=== PATIENT | male | born 1950 | race Caucasian/White ===

== ENCOUNTER 2017-05-10 16:35 | Emergency (ER) | payer MEDICARE, OTHER ==
[~2017-05-10] VITALS: Wt 68.0 kg
[~2017-05-10 16:35] MED LIST: AMOXICILLIN500 M2 PO; AUGMENTIN 875-875 MG PO; BENAZEPRIL10 MG PO; OXYCODONE AND A1 TA3 PO; REQUIP0.5 MG PO; TESSALON PERLE100 M1 PO; XANAX XR1 MG PO; XANAX1 MG PO; ZOCOR80 MG PO
[2017-05-10] MEDS ORDERED: CLARITIN10 MG PO (16:55)
[2017-05-10] MEDS ORDERED: AUGMENTIN 875875 MG PO (16:55)
[2017-05-10] MEDS ORDERED: FLONASE ALLERG9.9 ML NAS (16:55)
== END 2017-05-10 17:15 | disposition home or self-care (01) ==
LOC: ED 16:35
DX: J01.90 Acute sinusitis, unspecified (principal); F17.200 Nicotine dependence, unspecified, uncomplicated; Z96.611 Presence of right artificial shoulder joint

== ENCOUNTER 2017-08-22 12:03 | Emergency (ER) | payer MEDICARE ==
[~2017-08-22] VITALS: Ht 162.5 cm; Wt 77.1 kg
[~2017-08-22 12:03] MED LIST changes: +AUGMENTIN 875875 MG PO; +CLARITIN10 MG PO; +FLONASE ALLERG9.9 ML NAS
[2017-08-22] MEDS ORDERED: ROBITUSSIN DM 105 ML PO (13:26)
[2017-08-22] MEDS ORDERED: PREDNISONE20 M1 PO (13:26)
[2017-08-22] MEDS ORDERED: ZYRTEC10 MG PO (13:26)
== END 2017-08-22 13:58 | disposition home or self-care (01) ==
LOC: ED 12:03
DX: B34.9 Viral infection, unspecified (principal); F17.200 Nicotine dependence, unspecified, uncomplicated; Z98.890 Other specified postprocedural states; Z20.828 Contact with and (suspected) exposure to other viral communicable diseases; Z79.899 Other long term (current) drug therapy

== ENCOUNTER 2017-10-18 09:13 | Emergency (ER) | payer MEDICARE ==
[~2017-10-18] VITALS: Ht 162.5 cm; Wt 68.0 kg
[~2017-10-18 09:13] MED LIST changes: +PREDNISONE20 M1 PO; +ROBITUSSIN DM 105 ML PO; +ZYRTEC10 MG PO
[2017-10-18] MEDS ORDERED: FLONASE ALLERG9.9 ML NAS (09:49)
[2017-10-18] MEDS ORDERED: ROBITUSSIN DM 105 ML PO (09:49)
== END 2017-10-18 09:53 | disposition home or self-care (01) ==
LOC: ED 09:13
DX: R05 Cough (principal); J06.9 Acute upper respiratory infection, unspecified; F17.200 Nicotine dependence, unspecified, uncomplicated; Z98.890 Other specified postprocedural states; Z79.899 Other long term (current) drug therapy

== ENCOUNTER 2017-12-10 20:18 | Emergency (ER) | payer MEDICARE ==
[~2017-12-10] VITALS: Ht 167.6 cm; Wt 72.6 kg
[2017-12-10] MEDS ORDERED: ROBITUSSIN DM 105 ML PO (22:06)
[2017-12-10] MEDS ORDERED: PREDNISONE20 M1 PO (22:06)
[2017-12-10] MEDS ORDERED: CEFDINIR300 MG PO (22:06)
== END 2017-12-10 22:03 | disposition home or self-care (01) ==
LOC: ED 20:18
DX: J20.9 Acute bronchitis, unspecified (principal); J32.9 Chronic sinusitis, unspecified; Z79.899 Other long term (current) drug therapy; Z87.891 Personal history of nicotine dependence

== ENCOUNTER 2018-01-29 13:18 | Emergency (ER) | payer MEDICARE ==
[~2018-01-29] VITALS: Ht 157.4 cm; Wt 68.0 kg
[~2018-01-29 13:18] MED LIST changes: +CEFDINIR300 MG PO
[2018-01-29] MEDS ORDERED: AMOXICILLIN500 M2 PO (13:43)
[2018-01-29] MEDS ORDERED: PREDNISONE10 MG PO (13:43)
[2018-01-29] MEDS ORDERED: CLARITIN10 MG PO (13:43)
[2018-01-29] MEDS ORDERED: FLONASE ALLERG9.9 ML NAS (13:43)
[2018-02-18] MEDS ORDERED: COREG6.25 MG PO (14:00)
== END 2018-01-29 13:59 | disposition home or self-care (01) ==
LOC: ED 13:18
DX: G89.29 Other chronic pain (principal); M54.5 Low back pain; J02.9 Acute pharyngitis, unspecified; R03.0 Elevated blood-pressure reading, without diagnosis of hypertension; Z79.899 Other long term (current) drug therapy

== ENCOUNTER 2018-02-13 18:47 | Emergency (ER) | payer MEDICARE, OTHER ==
[~2018-02-13] VITALS: Wt 70.8 kg
[~2018-02-13 18:47] MED LIST changes: +PREDNISONE10 MG PO
[2018-02-13] MEDS ORDERED: CYCLOBENZAPRINE5 M3 PO (22:07)
[2018-02-18] MEDS ORDERED: COREG6.25 MG PO (14:00)
== END 2018-02-13 23:17 | disposition home or self-care (01) ==
LOC: ED 18:47
DX: S39.012A Strain of muscle, fascia and tendon of lower back, initial encounter (principal); S16.1XXA Strain of muscle, fascia and tendon at neck level, initial encounter; Z79.899 Other long term (current) drug therapy; Z98.890 Other specified postprocedural states; V89.2XXA Person injured in unspecified motor-vehicle accident, traffic, initial encounter; Y93.89 Activity, other specified; Y92.488 Other paved roadways as the place of occurrence of the external cause; Y99.8 Other external cause status

== ENCOUNTER 2018-02-23 18:20 | Emergency (ER) | payer MEDICARE ==
[~2018-02-23] VITALS: Ht 157.4 cm; Wt 68.0 kg
[~2018-02-23 18:20] MED LIST changes: +COREG6.25 MG PO; +CYCLOBENZAPRINE5 M3 PO
[2018-02-23] MEDS ORDERED: CEPHALEXIN500 M1 PO (19:08)
== END 2018-02-23 18:32 | disposition home or self-care (01) ==
LOC: ED 18:20
DX: S01.111D Laceration without foreign body of right eyelid and periocular area, subsequent encounter (principal); T81.4XXA Infection following a procedure, initial encounter; Z98.890 Other specified postprocedural states; Z79.899 Other long term (current) drug therapy; W19.XXXD Unspecified fall, subsequent encounter; Y92.9 Unspecified place or not applicable

== ENCOUNTER 2018-09-02 20:28 | Emergency (ER) | payer MEDICARE ==
[~2018-09-02] VITALS: Ht 162.5 cm; Wt 72.6 kg
--- NOTE | ~2018-09-02 | EKG ---
[place], [place] ELECTROCARDIOGRAM REPORT NAME: BERENICE JETT UNIT #: [id number] ROOM: DOCTOR: EPIPHANY DRAFT REPORT BIRTHDATE: [birth year] [facility] Test Date: 2018-09-02 Test Time: 21:10:06 Pat Name: BERENICE JETT Department: ED Room: Gender: Outside Salesman: Jeff Royal : 1950 Requested By: BROCK GRIJALVA Order Number: [id number] Reading MD: Nedra Dia MD Measurements Intervals [place] Rate: 68 P: 35 VA: 136 QRS: 10 QRSD: 86 T: 61 QT: 395 QTc: 421 Interpretive Statements Sinus rhythm Abnormal R-wave progression, early transition Electronically Signed On 09-04-2018 15:02:58 PST by Nedra Dia MD CM:EKGRPT:ELECTROCARDIOGRAM REPORT 1502 BROCK BARTHOLOMEW DRAFT REPORT BROCK GRIJALVA DO
[~2018-09-02 20:28] MED LIST changes: +CEPHALEXIN500 M1 PO
[2018-09-02 21:05] LABS: BASO % 0.4 % (0.0-1.0); EOS # 0.2 10*3/uL (0.0-0.4); EOS % 2.2 % (1.0-4.0); HEMATOCRIT 44.3 % (42.0-52.0); HEMOGLOBIN 14.6 g/dl (14.0-18.0); LYMPH # 2.2 10*3/uL (1.3-4.4); MEAN CELL VOLUME 99.6 fl (80.0-94.0); MEAN CORPUSCULAR HGB 32.8 pg (27.0-31.0); MEAN PLATELET VOLUME 12.7 fl (9.6-12.3); MONO # 0.9 10*3/uL (0.1-1.0); MONO % 9.9 % (3.0-9.0); NEUT # 5.8 10*3/uL (2.3-7.9); NEUT % 63.2 % (47.0-73.0); PLATELET COUNT AUTOMATED 149 10*3/uL (130-400); RED BLOOD COUNT 4.45 10*6/uL (4.50-5.90); RED CELL DISTRI WIDTH 13.4 % (0-14.5); WHITE BLOOD COUNT 9.2 10*3/uL (4.8-10.8)
[2018-09-02 21:22] LABS: ALBUMIN 3.4 gm/dl (3.1-4.5); ALKALINE PHOSPHATASE 60 U/L (45-117); BUN 19 mg/dl (7-24); CHLORIDE 110 mmol/L (98-107); CREATININE 0.99 mg/dL (0.70-1.30); LIPASE 295 U/L (73-393); SGOT/AST 18 IU/L (3-35); SGPT/ALT 19 U/L (12-78); SODIUM 144 mmol/L (136-145); TOTAL PROTEIN 7.1 gm/dL (6.4-8.2)
[2018-09-02 21:30] LABS: BILIRUBIN NEGATIVE (NEGATIVE); BLOOD NEGATIVE (NEGATIVE); CLARITY CLEAR (CLEAR); COLOR YELLOW (YELLOW); GLUCOSE NEGATIVE (NEGATIVE); KETONE TRACE (NEGATIVE); LEUKO ESTERASE NEGATIVE (NEGATIVE); NITRITE NEGATIVE (NEGATIVE); PH 5.5 (5.0-9.0); SPECIFIC GRAVITY 1.025 (1.005-1.030)
[2018-09-02 21:31] LABS: TROPONIN I < 0.015 ng/ml (<0.045)
[2018-09-02 21:49] LABS: RBC 0-2 rbc/hpf (0-2)
[2018-09-02] MEDS ORDERED: ONDANSETRON4 MG SL (23:26)
[2018-09-02] MEDS ORDERED: Orphenadrine C100 MG PO (23:27)
== END 2018-09-03 00:27 | disposition home or self-care (01) ==
LOC: ED 20:28
PROVIDERS: Emergency Medicine
DX: G89.29 Other chronic pain (principal); M54.9 Dorsalgia, unspecified; R79.1 Abnormal coagulation profile; R51 Headache; R11.0 Nausea; I10 Essential (primary) hypertension; Z79.899 Other long term (current) drug therapy

== ENCOUNTER 2019-02-01 21:36 | Emergency (ER) | payer MEDICARE, OTHER ==
[~2019-02-01] VITALS: Ht 167.6 cm; Wt 68.0 kg
[~2019-02-01 21:36] MED LIST changes: +ONDANSETRON4 MG SL; +Orphenadrine C100 MG PO
[2019-02-02] MEDS ORDERED: TESSALON PERLE100 M1 PO (00:02)
[2019-02-02] MEDS ORDERED: PROAIR HFA8.5 GM INH (00:02)
== END 2019-02-02 00:16 | disposition home or self-care (01) ==
LOC: ED 21:36
DX: J40 Bronchitis, not specified as acute or chronic (principal); F17.200 Nicotine dependence, unspecified, uncomplicated; Z79.899 Other long term (current) drug therapy; Z95.1 Presence of aortocoronary bypass graft

== ENCOUNTER 2020-08-19 08:38 | Emergency (ER) | payer MEDICARE, OTHER ==
[~2020-08-19] VITALS: Ht 162.5 cm; Wt 72.6 kg
[~2020-08-19 08:38] MED LIST changes: +PROAIR HFA8.5 GM INH
== END 2020-08-19 09:25 | disposition home or self-care (01) ==
LOC: ED 08:38
DX: S00.212A Abrasion of left eyelid and periocular area, initial encounter (principal); Z79.899 Other long term (current) drug therapy; X58.XXXA Exposure to other specified factors, initial encounter; Y93.89 Activity, other specified; Y92.89 Other specified places as the place of occurrence of the external cause; Y99.9 Unspecified external cause status

== ENCOUNTER 2021-08-08 19:57 | Emergency (ER) | payer MEDICARE, OTHER ==
[2021-08-08] MEDS ORDERED: ORPHENADRINE C100 M1 PO (23:12)
== END 2021-08-08 23:26 | disposition home or self-care (01) ==
LOC: ED 19:57
DX: S20.211A Contusion of right front wall of thorax, initial encounter (principal); Z79.899 Other long term (current) drug therapy; Z98.890 Other specified postprocedural states; W18.39XA Other fall on same level, initial encounter; Y93.89 Activity, other specified; Y92.89 Other specified places as the place of occurrence of the external cause; Y99.8 Other external cause status

== ENCOUNTER → 2022-01-01 | Outpatient (CLI) | payer MEDICARE, OTHER ==
[~2022-01-01] MED LIST changes: +ORPHENADRINE C100 M1 PO
== END | disposition home or self-care (01) ==
LOC: CARD 09:15
PROVIDERS: ATTEND Ophthalmology
DX: Z01.818 Encounter for other preprocedural examination (principal); R94.31 Abnormal electrocardiogram [ECG] [EKG]